=== PATIENT | male | born 1950 | race Caucasian/White ===

== ENCOUNTER 2017-04-08 15:56 | Emergency (ER) | payer MEDICARE, OTHER ==
[2006-04-29 06:47] VITALS: BP 116/62
[~2017-04-08] VITALS: Ht 172.7 cm; Wt 86.4 kg
[2017-04-08 16:01] VITALS: TEMP 98.8
[2017-04-08 17:30] VITALS: BP 122/79; PULSE 80
== END 2017-04-08 17:40 | disposition home or self-care (01) ==
LOC: COL.ER 15:56
DX: S82.831A Other fracture of upper and lower end of right fibula, initial encounter for closed fracture (principal); W55.29XA Other contact with cow, initial encounter; F32.9 Major depressive disorder, single episode, unspecified; Z85.46 Personal history of malignant neoplasm of prostate; Z87.891 Personal history of nicotine dependence; G47.33 Obstructive sleep apnea (adult) (pediatric); Z85.038 Personal history of other malignant neoplasm of large intestine; N40.0 Benign prostatic hyperplasia without lower urinary tract symptoms
CPT/HCPCS: J2704; J7030